=== PATIENT | female | born 1960 | race Caucasian/White ===

== ENCOUNTER → 2023-10-22 08:03 | Outpatient (REF) | payer MEDICARE, SELFPAY | LOC: HWRAD 08:03 | PROVIDERS: ATTENDING PHYSICIAN Family Medicine | DX: R42 Dizziness and giddiness (principal); H91.93 Unspecified hearing loss, bilateral; H93.13 Tinnitus, bilateral; R55 Syncope and collapse | CPT/HCPCS: 93880 ==

== ENCOUNTER → 2023-11-04 13:31 | Outpatient (REF) | payer MEDICARE, SELFPAY | LOC: RCS 13:31 | PROVIDERS: ATTENDING PHYSICIAN Family Medicine | DX: R55 Syncope and collapse (principal); R06.02 Shortness of breath; R07.89 Other chest pain | CPT/HCPCS: 93017; 93306 ==

== ENCOUNTER → 2023-11-05 09:10 | Outpatient (REF) | payer MEDICARE, SELFPAY | LOC: RCS 09:10 | PROVIDERS: ATTENDING PHYSICIAN Family Medicine; REFERRING PHYSICIAN Internal Medicine Cardiovascular Disease | DX: R55 Syncope and collapse (principal); R06.02 Shortness of breath; R07.89 Other chest pain | CPT/HCPCS: 93225; 93226 ==

== ENCOUNTER → 2024-02-10 07:19 | Outpatient (REF) | payer MEDICARE, SELFPAY | LOC: PAVMRI 07:19 | PROVIDERS: ATTENDING PHYSICIAN Otolaryngology; FAMILY PHYSICIAN Family Medicine | DX: H93.A3 Pulsatile tinnitus, bilateral (principal) | CPT/HCPCS: 70546; 70549; 70553; A9585 ==

== ENCOUNTER → 2024-11-17 07:01 | Outpatient (REF) | payer MEDICARE, SELFPAY | LOC: HWRAD 07:01 | PROVIDERS: ATTENDING PHYSICIAN Family Medicine | DX: R10.11 Right upper quadrant pain (principal) | CPT/HCPCS: 76700 ==

== ENCOUNTER → 2025-05-12 09:58 | Outpatient (REF) | payer MEDICARE, SELFPAY | LOC: PAVMRI 09:58 | PROVIDERS: ATTENDING PHYSICIAN Orthopaedic Surgery; FAMILY PHYSICIAN Pediatrics | DX: M54.16 Radiculopathy, lumbar region (principal) | CPT/HCPCS: 72148 ==